=== PATIENT | female | born 1985 | race American Indian/Alaskan Native ===

== ENCOUNTER 2016-08-01 04:07 | Inpatient (IN) | payer MEDICAID ==
[~2016-08-01] VITALS: Ht 160 cm; Wt 89.5 kg
[2016-08-01] MEDS ORDERED: OXYTOCIN 30U/ 0.9% NaCL 500ML 500 ML IV PRN (04:51)
[2016-08-01] MEDS ORDERED: OXYTOCIN 30U/ 0.9% NaCL 500ML 500 ML IV ONE (04:51)
[2016-08-01] MEDS ORDERED: D5%-LACTATED RINGERS 1,000 ML IV SCH (04:51)
[2016-08-01] MEDS ORDERED: TERBUTALINE 1 MG/ML, 1ML IVPush PRN (05:00)
[2016-08-01] MEDS ORDERED: FENTANYL PF 100 MCG/2ML IVPush PRN (05:00)
[2016-08-01] MEDS ORDERED: CALCIUM CARBONATE 500 MG TAB.CHEW PO PRN (05:00)
[2016-08-01] MEDS ORDERED: ONDANSETRON 2MG/ML, 2ML IVPush PRN (05:00)
[2016-08-01] MEDS ORDERED: FENTANYL PF 100 MCG/2ML IV PRN (05:00)
[2016-08-01] MEDS ORDERED: MISOPROSTOL 25 MCG TABLET VG PRN (05:00)
[2016-08-01] MEDS: LACTATED RINGERS 1,000 ML IV SCH ×2 (05:10→17:40)
[2016-08-01] MEDS ORDERED: OXYTOCIN 30U/ 0.9% NaCL 500ML 500 ML ONE (05:47)
[2016-08-01] MEDS ORDERED: NEWBORN KIT ONE (05:47)
[2016-08-01] MEDS: AMPICILLIN 2 GM IV ONE (05:50)
[2016-08-01] MEDS ORDERED: MISOPROSTOL 25 MCG TABLET ONE (07:09)
[2016-08-01] MEDS: AMPICILLIN 1 GM IV SCH ×5 (09:50→22:00)
[2016-08-01] MEDS: AMPICILLIN 1 GM IVPB SCH ×3 (10:00→22:00)
[2016-08-01] MEDS ORDERED: FENTANYL PF 100 MCG/2ML ONE (12:50)
[2016-08-01] MEDS ORDERED: BUPIVACAINE 0.25% ONE (12:51)
[2016-08-01] MEDS ORDERED: FENTANYL/BUPIV./NS/PF 250 ML EPIDCONT ONE (12:51)
[2016-08-01] MEDS: OXYTOCIN 30U/ 0.9% NaCL 500ML 500 ML IV SCH (13:56)
[2016-08-01] MEDS ORDERED: CEFAZOLIN PMX 1GM/50ML 50 ML ONE (14:00)
[2016-08-01] MEDS ORDERED: LIDOCAINE 1%, 20ML ONE (21:28)
[2016-08-01] MEDS ORDERED: MISOPROSTOL 200 MCG TABLET ONE (21:28)
[2016-08-02] MEDS ORDERED: OXYTOCIN 30U/ 0.9% NaCL 500ML 500 ML ONE (03:19)
[2016-08-02] MEDS: OXYTOCIN 30U/ 0.9% NaCL 500ML 500 ML IV SCH ×2 (03:20→19:35)
[2016-08-02] MEDS ORDERED: ONDANSETRON 2MG/ML, 2ML ONE (04:02)
[2016-08-02] MEDS ORDERED: OXYcodone/APAP 5/325MG TABLET ONE (04:02)
[2016-08-02] MEDS: DOCUSATE 100 MG CAPSULE PO PRN ×2 (04:10→07:05)
[2016-08-02] MEDS: OXYcodone/APAP 5/325MG TABLET PO PRN ×2 (04:10→09:05)
[2016-08-02] MEDS: LACTATED RINGERS 1,000 ML IV SCH (06:00)
[2016-08-02] MEDS: AMPICILLIN 1 GM IVPB SCH (14:15)
[2016-08-02] MEDS ORDERED: RHOGAM FROM BLOOD BANK 1 NOTE EA IM/IV ONE (16:00)
[2016-08-02] MEDS ORDERED: IBUPROFEN 600 MG TABLET PO PRN (16:00)
[2016-08-02] MEDS ORDERED: OXYcodone/APAP 5/325MG TABLET PO PRN (16:00)
[2016-08-02 19:20] VITALS: BP 109/66
[2016-08-03] MEDS: OXYTOCIN 30U/ 0.9% NaCL 500ML 500 ML IV SCH (02:00)
[2016-08-03] MEDS ORDERED: LACTATED RINGERS 1,000 ML IVBOLUS ONE (04:30)
[2016-08-03] MEDS ORDERED: AMPICILLIN 2 GM IVPB ONE (05:00)
[2016-08-03] MEDS ORDERED: DIPH,PERTUSS(ACELL),TET VAC/PF NC IM-VACC ONE (05:30)
[2016-08-03 07:42] VITALS: BP 94/47
[2016-08-03 07:45] VITALS: BP 129/95
[2016-08-03] MEDS ORDERED: MEASLES,MUMPS&RUBELLA VACC/PF 0.5 ML SQ-VACC ONE (08:30)
[2016-08-03] MEDS ORDERED: IBUP800T PO (08:43)
[2016-08-03] MEDS ORDERED: OXYC-302 PO (08:44)
[2016-08-03] MEDS ORDERED: PRENATAL VIT/IRON/FA 1 EACH TABLET PO SCH (09:00)
== END 2016-08-03 09:29 | disposition home or self-care (01) | DRG 775 ==
LOC: LDIP 04:07 → 2NE 08-02 04:54 → 2NW 08-02 17:56
PROVIDERS: ADMIT Obstetrics & Gynecology; ATTEND Obstetrics & Gynecology
PROC: 10E0XZZ Delivery of Products of Conception, External Approach (ICD-10-PCS; principal; 2016-08-01)
PROC: 0W8NXZZ Division of Female Perineum, External Approach (ICD-10-PCS; 2016-08-01)
PROC: 10907ZC Drainage of Amniotic Fluid, Therapeutic from Products of Conception, Via Natural or Artificial Opening (ICD-10-PCS; 2016-08-01)
PROC: 3E033VJ Introduction of Other Hormone into Peripheral Vein, Percutaneous Approach (ICD-10-PCS; 2016-08-01)
PROC: 3E0P7GC Introduction of Other Therapeutic Substance into Female Reproductive, Via Natural or Artificial Opening (ICD-10-PCS; 2016-08-01)
PROC: 00HU33Z Insertion of Infusion Device into Spinal Canal, Percutaneous Approach (ICD-10-PCS; 2016-08-01)
PROC: 3E0R3CZ (ICD-10-PCS; 2016-08-01)
DX: O99.824 Streptococcus B carrier state complicating childbirth (principal); Z37.0 Single live birth; Z3A.40 40 weeks gestation of pregnancy; Z23 Encounter for immunization
CPT/HCPCS: 36415; 85025; 86850; 86900; 90715; J0290; J2405; J2590; J3010; J7120; J7121